=== PATIENT | female | born 1955 | race African-American/Black ===

== ENCOUNTER 2018-11-25 18:10 | Emergency (ER) | payer BC, OTHER ==
[2018-11-25 18:17] VITALS: BP 183/89; PULSE 77; TEMP 98.3; BMI 36.9
[2018-11-25] MEDS ORDERED: ACETAMINOPHEN 325 MG TABLET (FP) ONE (18:34)
[2018-11-25] MEDS ORDERED: ACETAMINOPHEN 325 MG TABLET (FP) PO ONE (18:34)
[2018-11-25] MEDS ORDERED: DIPHTH,PERTUSS(ACELL),TET 0.5 ML DISP.SYRIN IM ONE (19:51)
--- NOTE | 2018-11-25 19:59 | PDOC ---
History of Present Illness <Justin Davis - Last Filed: 11/25/18 20:16> - General History Source: Patient Exam Limitations: No Limitations <Elyse Bateman - Last Filed: 11/26/18 07:57> - General Chief Complaint: Injury Stated Complaint: LAC Time Seen by Provider: 11/25/18 18:19 Past History <Justin Davis - Last Filed: 11/25/18 20:16> - Travel Traveled outside of the country in the last 30 days: No Close contact w/someone who was outside of country & ill: No - Past Medical History Cardiac Disorders: Yes COPD: No - Surgical History Cardiac Surgery: Yes (4 MONTHS AGO, OPEN HEART) - Suicide/Smoking/Psychosocial Hx Smoking History: Never smoked Hx Alcohol Use: No Drug/Substance Use Hx: No <Elyse Bateman - Last Filed: 11/26/18 07:57> - Past Medical History Allergies/Adverse Reactions: Allergies Allergy/AdvReac Type Severity Reaction Status Date / Time No Known Allergies Allergy Verified 11/25/18 18:14 Home Medications: Ambulatory Orders Amox-Tr/K Cl [Augmentin - 875Mg Tablet] 1 tab PO BID #14 tablet 11/26/18 Review of Systems - Review of Systems Able to Perform ROS?: Yes Is the patient limited Khmer proficient: No Constitutional: No: Chills, Fever, Weakness Integumentary: Yes: Other (cut to R second finger). No: Lesions, Rash Neurological: No: Paresthesia, Tingling, Weakness Hematologic/Lymphatic: Yes: Easy Bleeding (on eliquis) <Elyse Bateman - Last Filed: 11/26/18 07:57> *Physical Exam - Vital Signs Last Vital Signs Temp Pulse Resp BP Pulse Ox 98.3 F 77 16 183/89 H 95 11/25/18 18:12 11/25/18 18:12 11/25/18 18:12 11/25/18 18:12 11/25/18 18:12 <Justin Davis - Last Filed: 11/25/18 20:16> - Vital Signs Last Vital Signs Temp Pulse Resp BP Pulse Ox 98.3 F 77 16 183/89 H 95 11/25/18 18:12 11/25/18 18:12 11/25/18 18:12 11/25/18 18:12 11/25/18 18:12 - Physical Exam General Appearance: Yes: Nourished, Appropriately Dressed. No: Apparent Distress Extremity: positive: Normal Capillary Refill, Normal Range of Motion (able to fully flex and extend R second digit), Tender (over the laceration site of the R second digit) Integumentary: positive: Normal Color, Dry, Warm, Other (2cm laceration present to the proximal R second digit. Small arterial bleed noted to the lateral aspect of the wound) Neurologic: positive: Fully Oriented, Alert, Normal Mood/Affect, Normal Response , Motor Strength 5/5 <Elyse Bateman - Last Filed: 11/26/18 07:57> Procedures - Laceration/Wound Repair Right Medial Hand 2nd digit Wound Length: 2.6 to 5.0 cm Wound Explored: clean Wound's Depth, Shape: superficial, linear Irrigated w/ Saline: No Betadine Prep: No Anesthesia: 1% Lidocaine Amount of Anesthetic (ccs): 3 Wound Repaired With: Sutures Suture Size/Type: 5:0, 4:0 Number of Sutures: 8 Layer Closure: No Sterile Dressing Applied: Yes Splint Applied: No Sling Applied: No <Justin Davis - Last Filed: 11/25/18 20:16> ED Treatment Course - Medications Given in the ED: ED Medications Discontinued Medications Generic Name Dose Route Start Last Admin Trade Name Freq PRN Reason Stop Dose Admin Acetaminophen 975 mg 11/25/18 18:34 11/25/18 18:36 Tylenol - PO 11/25/18 18:35 975 mg ONCE ONE Administration <Justin Davis - Last Filed: 11/25/18 20:16> - RADIOLOGY Radiology Studies Ordered: Category Date Time Status HAND- RIGHT [RAD] Stat Radiology 11/25/18 18:33 Taken - Medications Given in the ED: ED Medications Discontinued Medications Generic Name Dose Route Start Last Admin Trade Name Freq PRN Reason Stop Dose Admin Acetaminophen 975 mg 11/25/18 18:34 11/25/18 18:36 Tylenol - PO 11/25/18 18:35 975 mg ONCE ONE Administration <Elyse Bateman - Last Filed: 11/26/18 07:57> Medical Decision Making - Medical Decision Making 11/25/18 19:59 The patient is a 63 y/o F with PMH of endocarditis, currently on blood thinners who presents to the ER for deep finger laceration to her R second digit. The patient was washing dishes and cut her finger on broken glass. She states it has been bleeding a lot. She does not remember the date of her last tetanus shot. Denies numbness weakness and tingling to the affected extremity. The patient is R hand dominant. A/P: Finger laceration On exam pt with deep finger laceration to the R second digit. Small pumper noted to the lateral aspect of the digit Pt able to fully flex and extend the finger Tourniquet applied to get pt to x-ray No foreign body or broken bones noted Wound was copiously irrigated Wound repaired by Dr. Davis; see procedure note Pressure dressing applied Verbal order for boostrix given. Unable to enter order into computer Augmentin sent to pt pharmacy for antibiotic prophylaxis given history DC home to have pt follow up in 3 days for a wound check <Elyse Bateman - Last Filed: 11/26/18 07:57> *DC/Admit/Observation/Transfer <Justin Davis - Last Filed: 11/25/18 20:16> - Discharge Dispostion Decision to Admit order: No <Elyse Bateman - Last Filed: 11/26/18 07:57> Diagnosis at time of Disposition: Laceration - Discharge Dispostion Disposition: HOME Condition at time of disposition: Stable - Referrals Referrals: Romel Odom MD [Primary Care Provider] - - Patient Instructions Printed Discharge Instructions: DI for Laceration Repair -- Simple Additional Instructions: You had your cut fixed today with stitches. Please return in 2 days to have your stitches checked. The stitches will stay in for 7-10 days Your tetanus shot was updated today. Avoid soaking the finger. Keep it dry when showering. Please keep the area clean and pat dry. You may take Tylenol as needed for pain. Follow the dosing instruction from the bottle Return to the emergency department sooner if you have area of redness around the site, purulent drainage, fevers, or have any changes in your symptoms. - Post Discharge Activity
== END 2018-11-25 20:07 | disposition home or self-care (01) ==
LOC: JERFT 18:10
PROC: 0JQJ0ZZ Repair Right Hand Subcutaneous Tissue and Fascia, Open Approach (ICD-10-PCS; principal; 2018-11-25)
DX: S61.210A Laceration without foreign body of right index finger without damage to nail, initial encounter (principal); W25.XXXA Contact with sharp glass, initial encounter; Y93.G1 Activity, food preparation and clean up; Y92.010 Kitchen of single-family (private) house as the place of occurrence of the external cause; Y99.8 Other external cause status
CPT/HCPCS: 73130-TC-RT-FY; 99281-25

== ENCOUNTER 2024-05-07 12:37 | Inpatient (IN) | payer OTHER ==
[2024-05-07 13:17] VITALS: BMI 32.0
[2024-05-07] MEDS ORDERED: ALBUTEROL SO4 2.5/IPRATROPIUM 0.5 INH SOL 3 ML VIAL.NEB. NEB ONE (14:09)
[2024-05-07] MEDS ORDERED: AZITHROMYCIN IVPB 500 MG/250 ML BAG IVPB ONE (14:10)
[2024-05-07] MEDS ORDERED: FUROSEMIDE 40 MG/4 ML INJECTABLE VIAL ONE (14:10)
[2024-05-07] MEDS ORDERED: methylPREDNISolone NA SUCC 125 MG/2 ML VIAL ONE (14:10)
[2024-05-07] MEDS ORDERED: CEFTRIAXONE 1 G/50 ML PREMIX 50 ML IVPB ONE ×2 (14:10→14:20)
[2024-05-07 14:21] LABS: BASO % 0.8 % (0-2.0); HEMATOCRIT 40.5 % (32.4-45.2); HEMOGLOBIN 12.9 GM/dL (10.7-15.3); LYMPH % 13.1 % (8-40); MCH 22.9 pg (25.7-33.7); MCHC 31.8 g/dl (32.0-36.0); MEAN CELL VOLUME 72.1 fl (80-96); MEAN PLT VOLUME 7.3 fl (7.5-11.1); MONO % 6.3 % (3.8-10.2); NEUT % 78.8 % (42.8-82.8); PLATELET COUNT 344 10^3/uL (134-434); RBC 5.62 M/mm3 (3.60-5.2); RDW 18.9 % (11.6-15.6); WHITE BLOOD COUNT 10.2 K/mm3 (4.0-10.0)
[2024-05-07] MEDS: CEFTRIAXONE 1 GM in DEXTROSE 5%-WATER - 100 ML IVPB ONE (14:27)
[2024-05-07] MEDS: FUROSEMIDE 40 MG/4 ML INJECTABLE VIAL IVPUSH ONE (14:27)
[2024-05-07] MEDS: methylPREDNISolone NA SUCC 125 MG/2 ML VIAL IVPUSH ONE (14:27)
[2024-05-07] MEDS: AZITHROMYCIN IVPB 500 MG in DEXTROSE 5%-WATER - 250 ML IVPB ONE (14:27)
[2024-05-07] MEDS: ALBUTEROL SO4 2.5/IPRATROPIUM 0.5 INH SOL 3 ML VIAL.NEB. NEB ONE (14:27)
[2024-05-07 14:30] LABS: ACTIVATED PTT 33.3 SECONDS (25.2-36.5); INR 1.51 (0.83-1.09); PROTHROMBIN TIME (PATIENT) 16.5 SEC (9.7-13.0)
[2024-05-07 14:47] LABS: CALCIUM 9.6 mg/dL (8.5-10.1)
[2024-05-07 14:48] LABS: ALBUMIN 3.1 g/dl (3.4-5.0)
[2024-05-07 14:53] LABS: BILIRUBIN,TOTAL 0.5 mg/dL (0.2-1); TOT PROT 7.5 g/dl (6.4-8.2)
[2024-05-07 14:55] LABS: N-TERMINAL BNP 9816.3 pg/ml (5-125)
[2024-05-07 15:07] LABS: BLOOD UREA NITROGEN 11.1 mg/dL (7-18); CREATININE 0.8 mg/dL (0.55-1.3)
[2024-05-07] MEDS ORDERED: PIPERACILLIN/TAZOB 4.5 GM 4.5 GM/100 ML BAG IVPB ONE (18:04)
[2024-05-07] MEDS: PIPERACILLIN/TAZOB 4.5 GM 4.5 GM in DEXTROSE 5%-WATER 100 ML IVPB SCH (18:05)
[2024-05-07] MEDS: ATORVASTATIN CA 20 MG TABLET (FP) PO SCH (21:41)
[2024-05-07] MEDS: APIXABAN 5 MG TABLET PO SCH (21:41)
[2024-05-07] MEDS: CARVEDILOL 25 MG TABLET (FP) PO SCH (21:41)
[2024-05-08] MEDS: BUDESONIDE/FORMETEROL FUMARATE 80/4.5 mcg INHALER IH SCH (06:07)
[2024-05-08 07:44] LABS: BASO % 0.2 % (0-2.0); HEMATOCRIT 38.1 % (32.4-45.2); HEMOGLOBIN 11.9 GM/dL (10.7-15.3); LYMPH % 8.5 % (8-40); MCH 22.6 pg (25.7-33.7); MCHC 31.3 g/dl (32.0-36.0); MEAN CELL VOLUME 72.2 fl (80-96); MEAN PLT VOLUME 7.5 fl (7.5-11.1); MONO % 3.1 % (3.8-10.2); NEUT % 88.2 % (42.8-82.8); PLATELET COUNT 353 10^3/uL (134-434); RBC 5.27 M/mm3 (3.60-5.2); RDW 18.5 % (11.6-15.6); WHITE BLOOD COUNT 10.1 K/mm3 (4.0-10.0)
[2024-05-08 08:11] LABS: BLOOD UREA NITROGEN 15.6 mg/dL (7-18)
[2024-05-08 08:12] LABS: ALBUMIN 2.9 g/dl (3.4-5.0); CALCIUM 9.4 mg/dL (8.5-10.1); MAGNESIUM 1.3 mg/dL (1.8-2.4)
[2024-05-08 08:14] LABS: PHOSPHOROUS 3.5 mg/dL (2.5-4.9)
[2024-05-08 08:16] LABS: BILIRUBIN,TOTAL 0.4 mg/dL (0.2-1); TOT PROT 6.9 g/dl (6.4-8.2)
[2024-05-08 08:29] LABS: POTASSIUM 3.3 mmol/L (3.5-5.1)
[2024-05-08] MEDS: PANTOPRAZOLE 40 MG TABLET PO SCH (09:29)
[2024-05-08] MEDS: predniSONE 20 MG TABLET (UD) PO SCH (09:29)
[2024-05-08] MEDS: AZITHROMYCIN 250 MG TABLET PO SCH (09:29)
[2024-05-08] MEDS ORDERED: FUROSEMIDE 40 MG/4 ML INJECTABLE VIAL IVPUSH SCH (10:00)
[2024-05-08] MEDS ORDERED: CEFTRIAXONE 1 G/50 ML PREMIX 50 ML IVPB SCH (10:00)
[2024-05-08] MEDS: FUROSEMIDE 40 MG/4 ML INJECTABLE VIAL IVPUSH SCH (13:34)
[2024-05-08] MEDS: POTASSIUM CHLORIDE ORAL LIQUID 20 MEQ/15 ML PO ONE (18:23)
[2024-05-08] MEDS: PIPERACILLIN/TAZOB 4.5 GM 4.5 GM in DEXTROSE 5%-WATER 100 ML IVPB SCH (19:56)
[2024-05-08] MEDS: MAGNESIUM OXIDE 400 MG TABLET (FP) PO ONE (20:00)
[2024-05-09 06:52] LABS: BASO % 0.1 % (0-2.0); EOS % 0.2 % (0-4.5); HEMATOCRIT 36.9 % (32.4-45.2); HEMOGLOBIN 11.4 GM/dL (10.7-15.3); LYMPH % 10.1 % (8-40); MCH 22.5 pg (25.7-33.7); MCHC 30.9 g/dl (32.0-36.0); MEAN CELL VOLUME 72.8 fl (80-96); MEAN PLT VOLUME 7.2 fl (7.5-11.1); MONO % 4.8 % (3.8-10.2); NEUT % 84.8 % (42.8-82.8); PLATELET COUNT 372 10^3/uL (134-434); RBC 5.06 M/mm3 (3.60-5.2); RDW 18.4 % (11.6-15.6); WHITE BLOOD COUNT 16.2 K/mm3 (4.0-10.0)
[2024-05-09 06:59] LABS: POTASSIUM 3.2 mmol/L (3.5-5.1)
[2024-05-09 07:02] LABS: ALBUMIN 2.9 g/dl (3.4-5.0); BLOOD UREA NITROGEN 17.7 mg/dL (7-18); CALCIUM 9.6 mg/dL (8.5-10.1); MAGNESIUM 1.9 mg/dL (1.8-2.4)
[2024-05-09 07:05] LABS: CREATININE 0.9 mg/dL (0.55-1.3); PHOSPHOROUS 3.4 mg/dL (2.5-4.9)
[2024-05-09 07:07] LABS: BILIRUBIN,TOTAL 0.3 mg/dL (0.2-1); TOT PROT 6.7 g/dl (6.4-8.2)
[2024-05-09] MEDS: POTASSIUM CHLORIDE ORAL LIQUID 20 MEQ/15 ML PO ONE ×2 (08:16→19:10)
[2024-05-09] MEDS: LEVALBUTEROL HCL 0.63 MG/3 ML VIAL.NEB. IH PRN (20:56)
[2024-05-10 06:19] VITALS: BP 128/75; PULSE 63; RESP 16; TEMP 97.5
[2024-05-10 08:06] LABS: POTASSIUM 4.3 mmol/L (3.5-5.1)
[2024-05-10 08:11] LABS: ALBUMIN 2.8 g/dl (3.4-5.0); BLOOD UREA NITROGEN 18.8 mg/dL (7-18); CALCIUM 9.6 mg/dL (8.5-10.1); MAGNESIUM 2.1 mg/dL (1.8-2.4)
[2024-05-10 08:14] LABS: CREATININE 0.8 mg/dL (0.55-1.3)
[2024-05-10 08:15] LABS: BILIRUBIN,TOTAL 0.4 mg/dL (0.2-1); TOT PROT 6.5 g/dl (6.4-8.2)
[2024-05-10 08:45] LABS: BASO % 0.9 % (0-2.0); HEMATOCRIT 39.4 % (32.4-45.2); HEMOGLOBIN 11.7 GM/dL (10.7-15.3); LYMPH % 15.3 % (8-40); MCHC 29.8 g/dl (32.0-36.0); MEAN CELL VOLUME 73.9 fl (80-96); MEAN PLT VOLUME 7.5 fl (7.5-11.1); MONO % 7.8 % (3.8-10.2); PLATELET COUNT 268 10^3/uL (134-434); RBC 5.34 M/mm3 (3.60-5.2); RDW 18.8 % (11.6-15.6); WHITE BLOOD COUNT 11.3 K/mm3 (4.0-10.0)
[2024-05-10 10:05] LABS: ANISOCYTOSIS 1+; MACROCYTOSIS 0
== END 2024-05-10 09:13 | disposition short-term general hospital (02) | DRG 314 ==
LOC: JER 12:37 → JERBED 16:12 → J4W 19:30
PROVIDERS: ADMIT Student in an Organized Health Care Education/Training Program; ATTEND Internal Medicine
DX: T82.897A Other specified complication of cardiac prosthetic devices, implants and grafts, initial encounter (principal); I50.33 Acute on chronic diastolic (congestive) heart failure; J96.01 Acute respiratory failure with hypoxia; J44.1 Chronic obstructive pulmonary disease with (acute) exacerbation; Y83.8 Other surgical procedures as the cause of abnormal reaction of the patient, or of later complication, without mention of misadventure at the time of the procedure; E87.6 Hypokalemia; E83.42 Hypomagnesemia; I11.0 Hypertensive heart disease with heart failure; E11.9 Type 2 diabetes mellitus without complications; I05.0 Rheumatic mitral stenosis
CPT/HCPCS: 0241U-QW; 36415; 71045-TC-FY; 80053; 82962; 83735; 83880; 84100; 84484; 85025; 85610; 85730; 87040; 93005; 93010; 93306-TC; 99285-25